=== PATIENT | female | born 1940 | race Caucasian/White ===

== ENCOUNTER 2017-01-29 10:02 | Inpatient (IN) | payer OTHER, MEDICAID ==
[~2017-01-29] VITALS: Ht 160 cm; Wt 77.3 kg
--- NOTE | ~2017-01-29 | DS ---
[place], [place] DISCHARGE SUMMARY NAME: [id number] UNIT #: [id number] ROOM: 426 DOCTOR: RODERICK ALMONTE MD BIRTHDATE: [birth year] DOS: 01/30/2017 DISCHARGE DIAGNOSES: 1. The patient with dizziness, which has resolved. 2. Benign positional vertigo. 3. Elevation of lactic acid levels normalized with hydration with normal saline. 4. Benign essential hypertension. 5. Mixed hyperlipidemia. HOSPITAL COURSE: The patient presented to [facility] Emergency Department with dizziness with some unsteadiness of the gait. The patient had a CT scan of the head performed which did not show any acute infarcts or any new injury to the brain. She did have some small vessel ischemic changes. The patient was admitted on suspicion of impending stroke and she was given aspirin and carotid arterial Dopplers were performed after admission, which showed less than 50% stenosis. The patient was treated with Antivert and she has been asymptomatic, no lightheadedness, no difficulty with ambulation. The patient also worked with physical therapy and since she was doing well. She was discharged to home today to follow up with her primary care physician in less than a week. 1. Benign essential hypertension with controlled blood pressures. The patient was continued on lisinopril and Norvasc. There were no hypotensive episodes. 2. Type 2 diabetes mellitus with normal blood sugars. Blood sugars were monitored and she was kept on no concentrated sweet diet. There is no evidence of hypoglycemia causing her dizziness and there were no episodes of severe hyperglycemia. 3. Mixed hyperlipidemia treated with simvastatin. LABORATORY DATA: Urine cultures were negative. Hemoglobin of 10.4, which dropped from 12.1 at admission. Apparently dilutional from hydration with normal saline during her stay at the hospital. Serum electrolytes were normal except for some drop in potassium to 3.2 apparently again from hydration with normal saline because her potassium levels were normal at admission. Should resolve on its own because hydration was stopped. DISCHARGE MANAGEMENT: Levemir insulin 30 units subq daily, Tradjenta 5 mg a day, potassium chloride 10 mEq daily, aspirin 325 mg a day, Protonix 40 mg a day, simvastatin 40 mg a day, metformin 500 mg b.i.d., glipizide 10 mg b.i.d., lisinopril 20 mg a day. Follow up at the office with her PCP, Dr. Sweeney in less than a week. [place], [place] DISCHARGE SUMMARY NAME: BETTY ORTA I UNIT #: [id number] ROOM: 426 DOCTOR: RODERICK ALMONTE MD BIRTHDATE: [birth year] RODERICK ALMONTE MD CM:DISCHARG 1404 1514 RODERICK ALMONTE MD 01/30/17 1514 interface
--- NOTE | ~2017-01-29 | WRIGHTHP ---
[place], [place] PATIENT HISTORY AND PHYSICAL EXAM NAME: BETTY ORTA I [facility] #: [id number] UNIT #: [id number] ROOM: 426 DOCTOR: RODERICK ALMONTE MD BIRTHDATE: [birth year] DOS: 01/29/2017 HISTORY OF PRESENT ILLNESS: The patient is a 77-year-old female with a past medical history of benign essential hypertension, type 2 diabetes mellitus, GERD, presented to the Emergency Department at [facility] with complaints of dizziness starting this morning. The patient felt unsteady. Her blood sugar was checked to be 313 with some lightheadedness, dizziness starting the day before yesterday. CT scan performed in the Emergency Department showed small vessel ischemic changes, and she was found to be somewhat dehydrated and with elevated blood pressures and sugars and recommended for admission and further management. After admission, the patient is starting to feel better. No chest pain. No fainting episodes. No other GI or urinary symptoms. Dizziness from uncertain etiology, carotid arterial Dopplers were checked and showed less than 50% stenosis. No signs of stroke, just small vessel disease on CT of the head. The patient to be treated with Antivert and to walk with physical therapy, and if she is ambulating very well, she can be discharged home tomorrow. No signs of any stroke. Mildly elevated lactic acid levels, which are improving. I will keep her on hydration with normal saline. There are no signs of sepsis or infection. The patient is looking good, has good skin color, normal speech, and she is looking well. REVIEW OF SYSTEMS: LUNGS: Without increased shortness of breath or wheezing. GASTROINTESTINAL: No nausea, vomiting, diarrhea, constipation. CARDIOVASCULAR: No chest pain, no palpitations. ALLERGIES: No known drug allergies. FAMILY HISTORY: Noncontributory. HOME MEDICATIONS: The patient takes lisinopril, hydrochlorothiazide, potassium, Tradjenta, aspirin, Protonix, simvastatin, metformin, glipizide, lisinopril at home. PHYSICAL EXAMINATION: VITAL SIGNS: Blood pressure 183/80, heart rate 87 beats per minute, breathing 20 times per minute, temperature 98 degrees Fahrenheit. GENERAL: Alert and oriented x3, in no visible distress. HEENT AND NECK: Extraocular movements are intact. Sclerae are anicteric. Oral mucosa is moist and clean. No obvious facial weakness. Neck is supple without any lymphadenopathy. No thyromegaly. No JVD. No carotid arterial bruits. LUNGS: Clear to auscultation. No wheezing. No rhonchi. CARDIOVASCULAR SYSTEM: Heart rate is regular in rate and rhythm. S1 and S2 normally audible. No significant murmur or any other abnormal cardiac sounds. ABDOMEN: Soft, nontender. No obvious organomegaly. Bowel sounds are present. No obvious herniation. EXTREMITIES: Without significant cyanosis or edema. Warm to touch. [place], [place] PATIENT HISTORY AND PHYSICAL EXAM NAME: BETTY ORTA I UNIT #: [id number] ROOM: 426 DOCTOR: RODERICK ALMONTE MD BIRTHDATE: [birth year] CENTRAL NERVOUS SYSTEM: Exam was also normal, no focal deficits. LABORATORY DATA: Lactic acid level of 2.6. Carotid arterial Dopplers showing less than 50% stenosis. CT scan of the head, no acute abnormality, just some small vessel ischemic changes. Chest x-ray without any acute abnormality. BUN and creatinine 15 and 1.2. Normal serum Electrolytes. Normal CO2. IMPRESSION AND PLAN: 1. The patient presenting with benign positional vertigo. No signs of any TIA or stroke. The patient does have some small vessel ischemic changes in her brain which are chronic. Carotid arterial Dopplers showed no critical stenosis. Also, start her on Antivert for symptomatic relief and let her work with physical therapy. If she is walking well, she can be discharged to home tomorrow morning. 2. Mildly elevated lactic acid level of uncertain significance. I will hydrate her with normal saline and recheck her lactic acid levels. 3. Type 2 diabetes mellitus. We will check her blood sugars. Keep on no concentrated sweet diet and treat accordingly. 4. Benign essential hypertension with elevated blood pressures. If her blood pressures do not normalize after she takes her lisinopril then I will add Norvasc to the treatment. 5. Mixed hyperlipidemia, treated with simvastatin. RODERICK ALMONTE MD CM:HISPHYS:PATIENT HISTORY AND PHYSICAL EXAMINATION 04 99 RODERICK ALMONTE MD 01/29/17 190 interface
[~2017-01-29 10:02] MED LIST: ASPIRIN81 M1 PO; CENTRUM SILVER1 TA2 PO; GLIPIZIDE10 MG PO; Janumet 1000 MG1 TAB PO; LEVEMIR100 U/ML SC; LISINOPRIL HCTZ1 TA1 PO; NEXIUM40 MG PO
[2017-01-29] MEDS ORDERED: LEVEMIR10 ML SC (10:08)
[2017-01-29] MEDS ORDERED: JANUMET 1000 MG1 TA1 PO (10:09)
[2017-01-29] MEDS ORDERED: PANTOPRAZOLE SO40 MG PO (10:09)
[2017-01-29 10:10] VITALS: BP 189/92
[2017-01-29 10:39] LABS: BASO % 0.7 % (0.0-1.0); EOS # 0.2 10*3/uL (0.0-0.4); EOS % 3.2 % (1.0-4.0); HEMATOCRIT 35.1 % (37.0-47.0); HEMOGLOBIN 12.1 g/dl (12.0-16.0); LYMPH # 1.5 10*3/uL (1.3-4.4); LYMPH % 24.9 % (27.0-41.0); MEAN CORPUSCULAR HGB CONC 34.5 g/dl (33.0-37.0); MEAN PLATELET VOLUME 10.5 fl (9.6-12.3); MONO # 0.5 10*3/uL (0.1-1.0); MONO % 7.9 % (3.0-9.0); NEUT # 3.7 10*3/uL (2.3-7.9); NEUT % 62.8 % (47.0-73.0); PLATELET COUNT AUTOMATED 158 10*3/uL (130-400); WHITE BLOOD COUNT 5.9 10*3/uL (4.8-10.8)
[2017-01-29 10:57] LABS: ALBUMIN 3.8 gm/dl (3.1-4.5); ALKALINE PHOSPHATASE 91 U/L (45-117); BILIRUBIN, TOTAL 0.6 mg/dl (0.2-1.0); BUN 15 mg/dl (7-24); CARBON DIOXIDE 24 mmol/L (21-32); CHLORIDE 94 mmol/L (98-107); EST GLOM FILT AFRICAN AMERICAN 53 ml/min; GLUCOSE 381 mg/dL (65-99); MAGNESIUM 1.1 mg/dL (1.5-2.1); POTASSIUM 3.5 mmol/L (3.5-5.1); SGOT/AST 30 IU/L (3-35); SGPT/ALT 49 U/L (12-78); SODIUM 133 mmol/L (136-145); TOTAL PROTEIN 7.8 gm/dL (6.4-8.2)
[2017-01-29 10:59] LABS: TROPONIN I < 0.015 ng/ml (<0.045)
[2017-01-29 11:42] LABS: BILIRUBIN NEGATIVE (NEGATIVE); BLOOD NEGATIVE (NEGATIVE); CLARITY CLEAR (CLEAR); COLOR YELLOW (YELLOW); GLUCOSE 3+ (NEGATIVE); KETONE NEGATIVE (NEGATIVE); LEUKO ESTERASE NEGATIVE (NEGATIVE); NITRITE NEGATIVE (NEGATIVE); PROTEIN NEGATIVE (NEGATIVE); SPECIFIC GRAVITY <= 1.005 (1.005-1.030); UROBILINOGEN 0.2 E.U./dl (0.2-1.0)
[2017-01-29 11:49] LABS: URINE REFLEX COMMENT YES (NO)
[2017-01-29 12:02] VITALS: BP 154/80; BP 186/88
[2017-01-29 12:35] LABS: LA>2 REFLEX 2 HR DRAW NOW
[2017-01-29 12:51] LABS: LA>2 RFLX FOLLOW UP AT 2 HRS 2.8 mmol/L (0.4-2.0)
[2017-01-29] MEDS ORDERED: POTASSIUM CHLO10 ME5 PO (13:04)
[2017-01-29] MEDS ORDERED: SIMVASTATIN40 MG PO (13:04)
[2017-01-29 13:50] VITALS: BP 172/72
[2017-01-29 14:45] LABS: LA>2 REFLEX 4 HR DRAW NOW
[2017-01-29 16:00] VITALS: BP 183/80
[2017-01-29 17:30] VITALS: BP 144/66
[2017-01-29 19:12] LABS: LA>2 REFLEX 2 HR DRAW NOW
[2017-01-29 19:29] LABS: LA>2 RFLX FOLLOW UP AT 2 HRS 2.6 mmol/L (0.4-2.0)
[2017-01-29 20:00] VITALS: BP 135/68
[2017-01-29 21:20] LABS: LA>2 REFLEX 4 HR DRAW NOW
[2017-01-30] VITALS: BP 122/68; BP 97/52
[2017-01-30 06:12] LABS: BUN 14 mg/dl (7-24); CARBON DIOXIDE 28 mmol/L (21-32); CHLORIDE 97 mmol/L (98-107); EST GLOM FILT AFRICAN AMERICAN > 60 ml/min; GLUCOSE 141 mg/dL (65-99); POTASSIUM 3.2 mmol/L (3.5-5.1); SODIUM 136 mmol/L (136-145)
[2017-01-30 06:16] LABS: BASO % 0.7 % (0.0-1.0); EOS # 0.3 10*3/uL (0.0-0.4); EOS % 5.5 % (1.0-4.0); HEMATOCRIT 31.1 % (37.0-47.0); HEMOGLOBIN 10.4 g/dl (12.0-16.0); LYMPH # 1.5 10*3/uL (1.3-4.4); MEAN CELL VOLUME 92.8 fl (81.0-99.0); MEAN CORPUSCULAR HGB CONC 33.4 g/dl (33.0-37.0); MEAN PLATELET VOLUME 10.5 fl (9.6-12.3); MONO # 0.5 10*3/uL (0.1-1.0); MONO % 8.2 % (3.0-9.0); NEUT # 3.2 10*3/uL (2.3-7.9); NEUT % 58.1 % (47.0-73.0); NUCLEATED RED BLOOD CELL 0.4 % (0.0-0.0); PLATELET COUNT AUTOMATED 150 10*3/uL (130-400); RED BLOOD COUNT 3.35 10*6/uL (4.10-5.10); RED CELL DISTRI WIDTH 13.9 % (0-14.5); WHITE BLOOD COUNT 5.5 10*3/uL (4.8-10.8)
[2017-01-30 08:00] VITALS: BP 140/75
== END 2017-01-30 11:52 | disposition home or self-care (01) | DRG 149 ==
LOC: ED 10:02 → 4E 12:35 → EDHOLD 12:35 → 4E 12:57
PROVIDERS: Internal Medicine; Nurse Practitioner Family
DX: H81.10 Benign paroxysmal vertigo, unspecified ear (principal); E11.65 Type 2 diabetes mellitus with hyperglycemia; E86.0 Dehydration; I10 Essential (primary) hypertension; K21.9 Gastro-esophageal reflux disease without esophagitis; E78.2 Mixed hyperlipidemia; Z79.899 Other long term (current) drug therapy; Z79.82 Long term (current) use of aspirin; Z79.84 Long term (current) use of oral hypoglycemic drugs

== ENCOUNTER → 2017-03-19 | Outpatient (CLI) | payer OTHER, MEDICAID ==
[~2017-03-19] MED LIST changes: +JANUMET 1000 MG1 TA1 PO; +LEVEMIR10 ML SC; +PANTOPRAZOLE SO40 MG PO; +POTASSIUM CHLO10 ME5 PO; +SIMVASTATIN40 MG PO
== END | disposition home or self-care (01) ==
LOC: RAD 09:02
DX: R05 Cough (principal); R06.02 Shortness of breath; R09.89 Other specified symptoms and signs involving the circulatory and respiratory systems; R06.2 Wheezing

== ENCOUNTER 2019-03-28 17:09 | Inpatient (IN) | payer OTHER, MEDICAID ==
[~2019-03-28] VITALS: Ht 162.5 cm; Wt 71.9 kg
--- NOTE | ~2019-03-28 | PR ---
[place], [place] PROGRESS NOTE NAME: BETTY ORTA I UNIT #: [id number] ROOM: 510 DOCTOR: DEION NAVA MD BIRTHDATE: [birth year] DOS: 04/04/2019 SUBJECTIVE: The patient is feeling good and is not having any complaints. She is sitting up in her bed. OBJECTIVE: VITAL SIGNS: Blood pressure is 136/63, pulse of 90, respirations 20, temperature 98.2. LUNGS: Diminished breath sounds. No wheezes, rales or rhonchi heard. HEART: Regular. ABDOMEN: Soft. EXTREMITIES: Without any edema. ASSESSMENT AND PLAN: 1. Adult failure to thrive, awaiting discharge to home with visiting nurses and PT, OT. 2. Acute kidney failure with acute tubular necrosis. Kidney functions have improved. Multiple medications have been discontinued, most likely because of volume depletion following a colonoscopy. 3. Hyponatremia, hypokalemia, as again corrected. 4. Type 2 diabetes mellitus. Blood sugars controlled on the current dose of medicines. Plan is to discharge today. DEION NAVA MD CM:PNTRANS [id number] DEION NAVA MD 04/05/19 0143 interface
--- NOTE | ~2019-03-28 | PR ---
[place], [place] PROGRESS NOTE NAME: BETTY ORTA I UNIT #: [id number] ROOM: 510 DOCTOR: RODERICK ALMONTE MD BIRTHDATE: [birth year] DOS: 04/03/2019 SUBJECTIVE: The patient continues to improve. She is ambulating with the help of physical therapy and may be able to be discharged to home tomorrow. She was waiting for transfer to custodial facility, which has not been arranged by insurance so far. OBJECTIVE: GENERAL APPEARANCE: The patient is alert and oriented x 3, in no visible distress. Generalized weakness. VITAL SIGNS: Blood pressure 145/58, heart rate 83 beats per minute, breathing 20 times per minute, temperature 99 degrees Fahrenheit. HEENT AND NECK: Exam within normal limits. CARDIOVASCULAR SYSTEM: Heart rate is regular in rate and rhythm. S1 and S2 normally audible. LUNGS: Clear to auscultation. ABDOMEN: Soft, nontender. No obvious organomegaly. Bowel sounds are present. EXTREMITIES: Without significant cyanosis or edema. IMPRESSION: 1. Advanced adult failure to thrive. Continues to be on physical therapy. Hopefully, to be discharged to home tomorrow with family. 2. Acute kidney failure and acute tubular necrosis. Creatinine improved to 1.24. Nephrology is following. Stage 3A chronic kidney disease. 3. Hypokalemia, resolved and hyponatremia, resolved with replacement. Hydrochlorothiazide was stopped permanently because it was causing electrolyte imbalance. 4. Mild protein calorie-malnutrition with albumin level of 3. The patient is working with Dietary. 5. Ambulatory dysfunction, treated with physical therapy. 6. Urinary tract infection, treated with ceftriaxone. 7. Mixed hyperlipidemia, treated with simvastatin. 8. Benign essential hypertension, treated and controlled. [place], [place] PROGRESS NOTE NAME: BETTY ORTA I UNIT #: [id number] ROOM: 510 DOCTOR: RODERICK ALMONTE MD BIRTHDATE: [birth year] RODERICK ALMONTE MD CM:PNTRANS 1210 1646 RODERICK ALMONTE MD 04/03/19 1647 interface
--- NOTE | ~2019-03-28 | PR ---
[place], [place] PROGRESS NOTE NAME: BETTY ORTA I UNIT #: [id number] ROOM: 510 DOCTOR: RODERICK ALMONTE MD BIRTHDATE: [birth year] DOS: SUBJECTIVE: The patient with ambulatory dysfunction and difficulty in walking. OBJECTIVE: VITAL SIGNS: Blood pressure 126/66, heart rate of 84 beats per minute, breathing 18 times per minute, temperature 98.1 degrees Fahrenheit. GENERAL APPEARANCE: The patient is alert and oriented x 3, in no visible distress, except for generalized weakness. HEENT AND NECK: Exam within normal limits. CARDIOVASCULAR SYSTEM: Heart rate is regular in rate and rhythm. S1 and S2 normally audible. LUNGS: Clear to auscultation. ABDOMEN: Soft, nontender. No obvious organomegaly. Bowel sounds are present. EXTREMITIES: Without significant cyanosis or edema. IMPRESSION AND PLAN: 1. Ambulatory dysfunction. The patient walks with help of a walker and working with Physical Therapy. 2. Chronic kidney disease stage 3 and diabetic nephropathy with acute tubular necrosis, acute over chronic kidney failure, is being treated with hydration, hydrochlorothiazide stopped. Dr. Biswas, airline lounge receptionist is following. The patient's BUN and creatinine have improved to 17 and 1.28. 3. Mild protein-calorie malnutrition with albumin level of 3. The patient is working with Dietary. 4. Benign essential hypertension, treated and controlled. 5. Hypomagnesemia, replaced, apparently from the patient taking hydrochlorothiazide. 6. Urinary tract infection, being treated with ceftriaxone. Urine cultures apparently contaminated, did not give me much information. 7. Mixed hyperlipidemia, treated with simvastatin. 8. Benign essential hypertension, treated and controlled. Blood pressures are staying normal. 9. Recent rhabdomyolysis from patient being on floor at home for many hours, treated with hydration with normal saline. [place], [place] PROGRESS NOTE NAME: BETTY ORTA I UNIT #: [id number] ROOM: 510 DOCTOR: RODERICK ALMONTE MD BIRTHDATE: [birth year] RODERICK ALMONTE MD CM:PNTRANS 1053 21 RODERICK ALMONTE MD 03/31/192022 interface
--- NOTE | ~2019-03-28 | PR ---
[place], [place] PROGRESS NOTE NAME: BETTY ORTA I UNIT #: [id number] ROOM: 510 DOCTOR: RODERICK ALMONTE MD BIRTHDATE: [birth year] DOS: 04/02/2019 SUBJECTIVE: 1. The patient ambulating with the help of physical therapy and waiting for [facility] facility. 2. Acute kidney failure, acute tubular necrosis. Creatinine improved to 1.24 and GFR to 51, stage 3A chronic kidney disease. 3. Hypokalemia and hyponatremia and hypomagnesemia have resolved after hydrochlorothiazide was stopped and electrolytes were replaced. 4. Mild protein-calorie malnutrition, albumin level of 3. The patient working with dietary. 5. Ambulatory dysfunction. The patient working with physical therapy. 6. UTI, treated with ceftriaxone. Urine cultures were contaminated. 7. Mixed hyperlipidemia, treated with simvastatin. 8. Benign essential hypertension, treated and controlled. RODERICK ALMONTE MD CM:PNTRANS 1035 [id number] RODERICK ALMONTE MD 04/03/19 0331 interface
--- NOTE | ~2019-03-28 | PR ---
[place], [place] PROGRESS NOTE NAME: BETTY ORTA I UNIT #: [id number] ROOM: 510 DOCTOR: RODERICK ALMONTE MD BIRTHDATE: [birth year] DOS: 04/01/2019 SUBJECTIVE: The patient continues to feel somewhat better. She is still quite weak and walking with the help of a walker with Physical Therapy. OBJECTIVE: VITAL SIGNS: Blood pressure 127/73, heart rate of 90 beats per minute, 98.3 degrees Fahrenheit temperature, breathing 18 times per minute. IMPRESSION: 1. The patient with acute tubular necrosis with chronic stage 3A chronic kidney disease. BUN and creatinine is improving with hydration with normal saline and Dr. Biswas, the skiver welt end is following her. 2. Benign essential hypertension, not treated and controlled. Blood pressures are staying normal. 3. Hypokalemia, replaced with potassium supplements. 4. Hyponatremia from hydrochlorothiazide, which has been stopped, improving with normal saline infusion. 5. Rhabdomyolysis, elevated creatinine of 1.32, normalized with hydration with normal saline. 6. Mild protein-calorie malnutrition with albumin level of 3. The patient working with Dietary. 7. Ambulatory dysfunction. The patient walks with a walker and working with Physical Therapy. 8. Urinary tract infection, treated with ceftriaxone. Urine culture is contaminated and did not help much. 9. Mixed hyperlipidemia, treated with simvastatin. RODERICK ALMONTE MD CM:PNTRANS [id number] RODERICK ALMONTE MD 05/05/19 0836 interface
--- NOTE | ~2019-03-28 | DS ---
[place], [place] DISCHARGE SUMMARY NAME: BETTY ORTA I UNIT #: [id number] ROOM: 510 DOCTOR: DEION NAVA MD BIRTHDATE: [birth year] DOS: 04/04/2019 DIAGNOSES: 1. Acute kidney failure. 2. Acute tubular necrosis. 3. Hyponatremia, hypokalemia, hypochloremia from diuretics. 4. Benign hypertension. 5. Type 2 diabetes mellitus. 6. Benign hypertension. 7. Dizziness with chronic benign positional vertigo. HOSPITAL COURSE: The patient is 79 years old. She recently underwent a colonoscopy and after that became increasingly tired with poor appetite, was found to be in acute kidney failure and was admitted. After admission, Dr. Biswas was consulted. Her medications were readjusted. IV fluids were ordered. Hypomagnesemia was noted. She will correct it. The patient was also found to have some rhabdo, which is also improved. Blood sugars are controlled after multiple medicines were discontinued. The patient is overall stable. This morning, the lab shows WBC count of 5.4, hemoglobin 9.0, comprehensive glucose 157, BUN 29, creatinine 1.48, sodium 140, potassium 3.8, phosphorus 1.4. The patient has been treated with IV fluids with improvement in the kidney functions. PT/OT was consulted. The patient is able to go home with PT/OT, so plan is to discharge her today. Hypomagnesemia, hypophosphatemia has been noticed. Supplements have been ordered. DISCHARGE MEDICATIONS: Neutra-Phos 1 packet t.i.d. for 7 days, mag oxide 400 mg 3 times a day for a month, glipizide 10 b.i.d., Levemir 30 units daily, simvastatin 40 daily, gabapentin 100 t.i.d., metoprolol 25 daily, Tylenol 500 q.6 p.r.n., Ozempic 2 mg q. weekly. Janumet, lisinopril, hydrochlorothiazide and propranolol were discontinued. [place], [place] DISCHARGE SUMMARY NAME: BETTY ORTA I UNIT #: [id number] ROOM: 510 DOCTOR: DEION NAVA MD BIRTHDATE: [birth year] DEION NAVA MD CM:INEZ 6 5 DEION NAVA MD 04/04/19 09 interface
--- NOTE | ~2019-03-28 | EKG ---
[place], [place] ELECTROCARDIOGRAM REPORT NAME: BETTY ORTA I UNIT #: [id number] ROOM: 510 DOCTOR: ISABEL DRAFT REPORT BIRTHDATE: [birth year] [facility] Test Date: 2019-03-28 Test Time: 19:09:15 Pat Name: BETTY ORTA Department: Room: 510 Gender: F Dinkey Locomotive Operator: EKG.WV : 1940 Requested By: MIYA NIÑO Order Number: [id number] Reading MD: Ebony Rodriguez Measurements Intervals Avery Rate: 81 P: 60 NM: 147 QRS: -4 QRSD: 100 T: 12 QT: 404 QTc: 469 Interpretive Statements Sinus rhythm RSR' in V1 or V2, probably normal variant Electronically Signed On 04-01-2019 13:05:37 PDT by Ebony Rodriguez CM:EKGRPT:ELECTROCARDIOGRAM REPORT 08 1305 MIYA NIÑO EPIPHJAMES DRAFT REPORT MIYA NIÑO
--- NOTE | ~2019-03-28 | PR ---
[place], [place] PROGRESS NOTE NAME: BETTY ORTA I UNIT #: [id number] ROOM: 510 DOCTOR: RODERICK ALMONTE MD BIRTHDATE: [birth year] DOS: 03/30/2019 SUBJECTIVE: The patient is feeling less shaky today and walking with help with a walker. OBJECTIVE: GENERAL APPEARANCE: The patient is alert and oriented x 3, in no visible distress. Generalized weakness. VITAL SIGNS: Blood pressure 134/91, heart rate of 98 beats per minute, breathing 18 times per minute, temperature 98.5 degrees Fahrenheit. HEENT AND NECK: Exam within normal limits. CARDIOVASCULAR SYSTEM: Heart rate is regular in rate and rhythm. S1 and S2 normally audible. LUNGS: Clear to auscultation. ABDOMEN: Soft, nontender. No obvious organomegaly. Bowel sounds are present. EXTREMITIES: Without significant cyanosis or edema. IMPRESSION AND PLAN: 1. Acute over chronic kidney disease stage 3 and diabetic nephropathy from acute tubular necrosis. The patient was taken off hydrochlorothiazide and is being gently hydrated by mobile designer, Dr. Biswas. 3. Benign essential hypertension, treated and controlled. 4. Hypomagnesemia, replace. 5. Urinary tract infection is being treated with ceftriaxone. 6. Type 2 diabetes mellitus. The patient's metformin was stopped. Blood sugars are reasonably controlled. 7. Recent rhabdomyolysis from patient being on the floor at home for many hours, treated with hydration with normal saline. 8. [id number] protein-calorie malnutrition related to her age and health, being followed by Dietary. 9. Mixed hyperlipidemia is being treated with simvastatin. RODERICK ALMONTE MD CM:PNTRANS 1649 33 RODERICK ALMONTE MD 03/30/191834 interface
--- NOTE | ~2019-03-28 | WRIGHTHP ---
[place], [place] PATIENT HISTORY AND PHYSICAL EX[id number] #: [id number] ROOM: 510 DOCTOR: RODERICK ALMONTE MD BIRTHDATE: [birth year] DOS: 03/28/2019 HISTORY OF PRESENT ILLNESS: The patient is an 79-year-old female with a past medical history of: 1. Dizziness and benign positional vertigo. 2. Benign essential hypertension. 3. Mixed hyperlipidemia. 4. Type 2 diabetes mellitus. 5. Vitamin D deficiency. Past surgical history of hysterectomy, cholecystectomy. The patient is not doing very well at home, getting forgetful, feeling fatigued and tired for a few days. The patient was found to be in acute kidney failure and recommended for admission and further management. The patient had some dizziness. HOME MEDICATIONS: Insulin, simvastatin, gabapentin, metoprolol, lisinopril, propranolol, glipizide. FAMILY HISTORY: Noncontributory. OBJECTIVE: VITAL SIGNS: Blood pressure 112/52, heart rate 82 beats per minute, breathing 20 times per minute, temperature 98 degrees Fahrenheit. GENERAL APPEARANCE: The patient is alert and oriented x 3, in no visible distress. Generalized weakness. HEENT AND NECK: Extraocular movements are intact. Sclerae are anicteric. Oral mucosa is moist and clean. No obvious facial weakness. Neck is supple without any lymphadenopathy. No thyromegaly. No JVD. No carotid arterial bruits. LUNGS: Clear to auscultation. No wheezing. No rhonchi. CARDIOVASCULAR SYSTEM: Heart rate is regular in rate and rhythm. S1 and S2 normally audible. No significant murmur or any other abnormal cardiac sounds. ABDOMEN: Soft, nontender. No obvious organomegaly. Bowel sounds are present. No obvious herniation. EXTREMITIES: Without significant cyanosis or edema. Warm to touch. CENTRAL NERVOUS SYSTEM: Alert and oriented x 3. Cranial nerves II-XII are intact. Speech is normal. The patient is able to move all extremities. Normal muscle strength. Deep tendon reflexes are equal on both sides. Plantars were downgoing. LABORATORY DATA: BUN and creatinine 49 and 3.09, improving with hydration. Severe hypokalemia with potassium level of 2.8. IMPRESSION: 1. Acute over chronic kidney disease, stage 3 and diabetic nephropathy, acute tubular necrosis related to treatment with hydrochlorothiazide and also recent poor appetite. The patient started on hydration by Dr. Biswas, narcotics and vice detective and lisinopril/hydrochlorothiazide were stopped. 2. Benign essential hypertension. Blood pressures to be monitored and treated [place], [place] PATIENT HISTORY AND PHYSICAL EXAM NAME: BETTY ORTA I UNIT #: [id number] ROOM: [facility] DOCTOR: RODERICK ALMONTE MD BIRTHDATE: [birth year] accordingly, lisinopril/hydrochlorothiazide stopped 3. Hypokalemia from use of hydrochlorothiazide. The patient given extra potassium supplements. 4. Hyponatremia from use of hydrochlorothiazide and dehydration, improving with IV fluids. 5. Hypomagnesemia from hydrochlorothiazide, replaced with extra magnesium. 6. Suspected urinary tract infection. The patient on ceftriaxone. 7. Type 2 diabetes mellitus. The patient on metformin, which was stopped because of her kidney failure. Blood sugars to be monitored and treated. 8. Rhabdomyolysis for being on the floor for many hours at home after she fell down. The patient is being treated with normal saline hydration. 9. Advance adult failure to thrive. The patient may require placement and I will consult nursing home social worker. 10. Mixed hyperlipidemia, treated with simvastatin. RODERICK ALMONTE MD CM:HISPHYS:PATIENT HISTORY AND PHYSICAL EXAMINATION 1728 08 RODERICK ALMONTE MD 05/05/19 0834 interface
[2019-03-28 17:16] VITALS: BP 102/48
[2019-03-28 17:53] LABS: BASO % 0.4 % (0.0-1.0); EOS # 0.6 10*3/uL (0.0-0.4); EOS % 6.7 % (1.0-4.0); HEMATOCRIT 31.6 % (37.0-47.0); LYMPH # 1.9 10*3/uL (1.3-4.4); LYMPH % 20.6 % (27.0-41.0); MEAN CORPUSCULAR HGB 32.7 pg (27.0-31.0); MEAN CORPUSCULAR HGB CONC 34.8 g/dl (33.0-37.0); MEAN PLATELET VOLUME 10.1 fl (9.6-12.3); MONO # 0.9 10*3/uL (0.1-1.0); MONO % 9.6 % (3.0-9.0); NEUT # 5.8 10*3/uL (2.3-7.9); NEUT % 62.4 % (47.0-73.0); PLATELET COUNT AUTOMATED 172 10*3/uL (130-400); RED BLOOD COUNT 3.36 10*6/uL (4.10-5.10); RED CELL DISTRI WIDTH 14.3 % (0-14.5); WHITE BLOOD COUNT 9.4 10*3/uL (4.8-10.8)
[2019-03-28 18:08] LABS: ACT PARTIAL THROMBO TIME 25.2 SECONDS (20.0-32.1); INTERNATIONAL NORM RATIO 1.1 (2.0-3.5)
[2019-03-28 18:15] LABS: ALBUMIN 3.5 gm/dl (3.1-4.5); CREATININE 3.09 mg/dL (0.55-1.02); POTASSIUM 2.8 mmol/L (3.5-5.1); TOTAL PROTEIN 7.3 gm/dL (6.4-8.2)
[2019-03-28 18:17] LABS: TROPONIN I 0.038 ng/ml (<0.045)
[2019-03-28 19:32] VITALS: BP 102/50
[2019-03-28 21:53] VITALS: BP 108/46
[2019-03-28 23:31] VITALS: BP 96/47
--- NOTE | 2019-03-28 23:58 | NUR ---
A 79, admitted to , under the services of Dr. GAGE SANDHU,RODERICK Miller with a diagnosis of DIZZINESS, ACUTE RENAL FAILURE, DEHYDRATION. Chief complaint is FALL. Patient arrived via ambulatory from ER. Monitor applied. Initial assessment completed. Vital signs taken and recorded. DR. GAGE SANDHU,RODERICK Miller notified of admission to the unit. Orders received. See assessment for past medical history, medications and allergies. Patient and/or family oriented to unit. [facility] visitation policy reviewed. Clothing/patient valuable form completed. MARK GUZMAN
[2019-03-29] VITALS: BP 102/52
[2019-03-29] MEDS ORDERED: NEURONTIN100 MG PO (00:25)
[2019-03-29] MEDS ORDERED: TOPROL XL25 MG PO (00:25)
[2019-03-29] MEDS ORDERED: ZESTORETIC 20-1 EAC1 PO (00:25)
[2019-03-29] MEDS ORDERED: CALCIUM + D3 E1 EACH PO (00:26)
[2019-03-29] MEDS ORDERED: TYLENOL EXTRA500 MG PO (00:26)
[2019-03-29] MEDS ORDERED: OZEMPIC1 MG/0.75 SQ ×2 (00:27→00:28)
[2019-03-29] MEDS ORDERED: PROPRANOLOL HCL10 MG PO (00:27)
--- NOTE | 2019-03-29 00:41 | NUR ---
A 79, admitted to 5E, under the services of Dr. GAGE SANDHU,RODERICK Miller with a diagnosis of DIZZINESS, ACUTE RENAL FAILURE, DEHYDRATION. Chief complaint is FALL. Patient arrived via ambulatory from ER. Monitor applied. Initial assessment completed. Vital signs taken and recorded. DR. GAGE SANDHU,RODERICK Miller notified of admission to the unit. Orders received. See assessment for past medical history, medications and allergies. Patient and/or family oriented to unit. [facility] visitation policy reviewed. Clothing/patient valuable form completed. MARK GUZMAN
--- NOTE | 2019-03-29 00:55 | NUR ---
MED REC UP TO DATE, DR ALMONTE NOTIFIED. NEW ORDERS RECEIVED FOR PATIENT.
[2019-03-29 01:04] LABS: BILIRUBIN 1+ (NEGATIVE); BLOOD NEGATIVE (NEGATIVE); CLARITY SL CLOUDY (CLEAR); COLOR YELLOW (YELLOW); GLUCOSE NEGATIVE (NEGATIVE); KETONE TRACE (NEGATIVE); LEUKO ESTERASE 3+ (NEGATIVE); NITRITE NEGATIVE (NEGATIVE); PH 5.5 (5.0-9.0); SPECIFIC GRAVITY 1.015 (1.005-1.030); UROBILINOGEN 0.2 E.U./dl (0.2-1.0)
[2019-03-29 01:12] LABS: BACTERIA TRACE; EPITHELIAL CELLS 30-35; WBC 41-50 wbc/hpf (0-5)
--- NOTE | 2019-03-29 05:57 | NUR ---
GLUCOSE MEDS HELD DUE TO BLOOD GLUCOSE OF 58.
--- NOTE | 2019-03-29 05:58 | NUR ---
D50W GIVEN BY NURSE KARTHIK DUE TO BLOOD GLUCOSE OF 58.
[2019-03-29 07:09] VITALS: BP 110/56
[2019-03-29 12:00] VITALS: BP 104/46; BP 114/56
[2019-03-29 12:19] LABS: BASO % 0.5 % (0.0-1.0); EOS # 0.5 10*3/uL (0.0-0.4); EOS % 7.6 % (1.0-4.0); HEMATOCRIT 26.9 % (37.0-47.0); HEMOGLOBIN 9.5 g/dl (12.0-16.0); LYMPH # 1.4 10*3/uL (1.3-4.4); LYMPH % 22.1 % (27.0-41.0); MEAN CELL VOLUME 94.4 fl (81.0-99.0); MEAN CORPUSCULAR HGB 33.3 pg (27.0-31.0); MEAN CORPUSCULAR HGB CONC 35.3 g/dl (33.0-37.0); MEAN PLATELET VOLUME 10.1 fl (9.6-12.3); MONO # 0.6 10*3/uL (0.1-1.0); MONO % 9.7 % (3.0-9.0); NEUT # 3.7 10*3/uL (2.3-7.9); NEUT % 59.8 % (47.0-73.0); PLATELET COUNT AUTOMATED 128 10*3/uL (130-400); RED BLOOD COUNT 2.85 10*6/uL (4.10-5.10); RED CELL DISTRI WIDTH 14.3 % (0-14.5); WHITE BLOOD COUNT 6.2 10*3/uL (4.8-10.8)
[2019-03-29 12:35] LABS: ALBUMIN 2.8 gm/dl (3.1-4.5); CREATININE 2.17 mg/dL (0.55-1.02); POTASSIUM 2.9 mmol/L (3.5-5.1); TOTAL PROTEIN 6.3 gm/dL (6.4-8.2)
[2019-03-29 16:00] VITALS: BP 112/52
[2019-03-29 20:00] VITALS: BP 106/52
[2019-03-30] VITALS: BP 122/55
[2019-03-30 06:25] LABS: BASO % 0.4 % (0.0-1.0); EOS # 0.4 10*3/uL (0.0-0.4); EOS % 6.5 % (1.0-4.0); HEMATOCRIT 26.4 % (37.0-47.0); LYMPH # 1.2 10*3/uL (1.3-4.4); LYMPH % 21.9 % (27.0-41.0); MEAN CELL VOLUME 95.7 fl (81.0-99.0); MEAN CORPUSCULAR HGB 32.6 pg (27.0-31.0); MEAN CORPUSCULAR HGB CONC 34.1 g/dl (33.0-37.0); MEAN PLATELET VOLUME 9.9 fl (9.6-12.3); MONO # 0.7 10*3/uL (0.1-1.0); MONO % 12.8 % (3.0-9.0); NEUT # 3.1 10*3/uL (2.3-7.9); PLATELET COUNT AUTOMATED 120 10*3/uL (130-400); RED BLOOD COUNT 2.76 10*6/uL (4.10-5.10); RED CELL DISTRI WIDTH 14.6 % (0-14.5); WHITE BLOOD COUNT 5.4 10*3/uL (4.8-10.8)
[2019-03-30 07:07] LABS: ALBUMIN 2.8 gm/dl (3.1-4.5); CREATININE 1.48 mg/dL (0.55-1.02); PHOSPHOROUS 1.5 mg/dL (2.5-4.9); POTASSIUM 3.8 mmol/L (3.5-5.1)
[2019-03-30 07:09] LABS: TOTAL PROTEIN 5.8 gm/dL (6.4-8.2)
[2019-03-30 08:00] VITALS: BP 120/72
[2019-03-30 12:00] VITALS: BP 134/64
[2019-03-30 16:00] VITALS: BP 134/91
[2019-03-30 20:00] VITALS: BP 128/56
[2019-03-31] VITALS: BP 124/69
--- NOTE | 2019-03-31 05:03 | NUR ---
24 HR chart check completed.
[2019-03-31 06:59] LABS: CREATININE 1.28 mg/dL (0.55-1.02); PHOSPHOROUS 4.1 mg/dL (2.5-4.9); POTASSIUM 3.8 mmol/L (3.5-5.1); TOTAL PROTEIN 6.6 gm/dL (6.4-8.2)
[2019-03-31 07:14] LABS: BASO % 0.6 % (0.0-1.0); EOS # 0.4 10*3/uL (0.0-0.4); EOS % 7.7 % (1.0-4.0); HEMATOCRIT 29.6 % (37.0-47.0); HEMOGLOBIN 9.8 g/dl (12.0-16.0); LYMPH # 1.2 10*3/uL (1.3-4.4); LYMPH % 23.6 % (27.0-41.0); MEAN CELL VOLUME 98.7 fl (81.0-99.0); MEAN CORPUSCULAR HGB 32.7 pg (27.0-31.0); MEAN CORPUSCULAR HGB CONC 33.1 g/dl (33.0-37.0); MONO # 0.5 10*3/uL (0.1-1.0); MONO % 10.7 % (3.0-9.0); NEUT # 2.8 10*3/uL (2.3-7.9); PLATELET COUNT AUTOMATED 142 10*3/uL (130-400)
[2019-03-31 08:00] VITALS: BP 126/66
--- NOTE | 2019-03-31 10:00 | NUR ---
Funeral Limousine Driver in to talk to patient. Patient states lives at home alone with her sons checking in on her. There are 6 steps in the home. Physician: Dr. Alcira Sweeney [facility]: has had [facility] in the past and would like their services upon discharge Patient's level of ADLs: MINIMAL ASSIST Patient has working utilities: yes DME: cane, rollator Follow-up physician's appointment after d/c: she prefers to make her own follow up appt after discharge Does patient want to access PORTAL?: no Discharge plan discussed with patient and son who is at the bedside. She lives at home with her 2 sons checking in on her. She needs minimal assistance with her ADLs and ambulates with a cane. Son just ordered a rollator. Discussed short term SNF and she refuses. Discussed home health care services and she is agreeable. When provided with a list of agencies she chose [facility] as she has had them in the past. When medically stable she will be discharged to home with [facility]. The son is working to switch his work schedule around so he can be home more with his mother. ASHTYN PATEL
--- NOTE | 2019-03-31 10:05 | NUR ---
BETTY ORTA I [id number] Please refer to the physician's history and physical for past medical history, comorbid conditions, and allergies. Diagnosis: DIZZINESS AC RENAL FAILURE DEHYDRATION Jeff Score: 17,AT RISK WOUND DESCRIPTIONS: Wound Number: 1 Location of the wound: Left buttocks Type of wound: stage 2 Thickness: Partial Size: 0.4cm x 0.3cm x 0.1cm Tunneling: none Undermining: none Sinus Tract: none Presence of Exudate: Serous Amount: Light Color: Red Odor: None Periwound Skin Appearance: Normal Wound edges: approximated Pain (associated with wound): none at time of assessment How does patient state this happened? pt stated she believes this is from her sitting all the time she stated she will take care of this area at home when she is discharged. Surface the patient is resting on: Isoflex SKIN PREVENTION RECOMMENDATION: 1. Pressure redistribution support surface as appropriate 2. Elevate heels 3. Remove boots/TEDS every shift and reapply 4. Head of bed 30 degrees as tolerated 5. Assess nutrition and hydration 6. Manage moisture 7. Avoid the use of containment devices while in bed 8. Use absorptive products on surfaces limit layers of linens on bed 9. Turn and reposition every 1-2 hours in bed and every 1 hour in chair as tolerated 10. Weight shifts every 15 minutes while up in chair 11. Offloading with pillows or device to keep heels elevated off bed 12. Monitor skin at least every shift 13. Inspect under medical devices twice a day WOUND TREATMENT RECOMMENDATIONS: Wheelchair cushion when oob. Stage 2 guidelines: Cleanse left buttocks with nss and apply sureprep around the wound therahoney to wound bed and cover with optifoam gentle.
[2019-03-31 12:00] VITALS: BP 130/63
[2019-03-31 16:00] VITALS: BP 114/57
[2019-03-31 20:00] VITALS: BP 124/67; BP 126/68
[2019-04-01] VITALS: BP 121/65
--- NOTE | 2019-04-01 04:42 | NUR ---
24 HR chart check completed.
[2019-04-01 06:33] LABS: BASO % 0.5 % (0.0-1.0); EOS # 0.5 10*3/uL (0.0-0.4); EOS % 8.1 % (1.0-4.0); HEMATOCRIT 29.2 % (37.0-47.0); HEMOGLOBIN 9.4 g/dl (12.0-16.0); LYMPH # 1.4 10*3/uL (1.3-4.4); LYMPH % 21.4 % (27.0-41.0); MEAN CELL VOLUME 99.7 fl (81.0-99.0); MEAN CORPUSCULAR HGB 32.1 pg (27.0-31.0); MEAN CORPUSCULAR HGB CONC 32.2 g/dl (33.0-37.0); MONO # 0.6 10*3/uL (0.1-1.0); MONO % 9.5 % (3.0-9.0); NEUT # 3.9 10*3/uL (2.3-7.9); PLATELET COUNT AUTOMATED 132 10*3/uL (130-400); RED BLOOD COUNT 2.93 10*6/uL (4.10-5.10); RED CELL DISTRI WIDTH 14.9 % (0-14.5); WHITE BLOOD COUNT 6.6 10*3/uL (4.8-10.8)
[2019-04-01 06:39] LABS: ALBUMIN 3.1 gm/dl (3.1-4.5); POTASSIUM 3.3 mmol/L (3.5-5.1)
[2019-04-01 06:41] LABS: CREATININE 1.32 mg/dL (0.55-1.02); TOTAL PROTEIN 6.6 gm/dL (6.4-8.2)
--- NOTE | 2019-04-01 06:53 | NUR ---
DR NAVA CALLED WITH [facility] 0.8, NEW ORDERS RECEIVED- SEE EMAR.
[2019-04-01 08:00] VITALS: BP 131/67; BP 132/82
--- NOTE | 2019-04-01 09:00 | NUR ---
C T Tech in to see patient. No new needs or request at this time. When medically stable she will be discharged to home with [facility] services.
[2019-04-01 10:09] LABS: CREATININE,URINE 76.4 mg/dL (Not Estab.); MICRO ALBUMIN/CRE RATIO 31.2 (0.0-30.0)
[2019-04-01 12:00] VITALS: BP 127/73
[2019-04-01 16:00] VITALS: BP 142/74
--- NOTE | 2019-04-01 16:00 | NUR ---
ASSESSMENT COMPLETE, WOUND ON BUTTOCKS NOT ASSESSED AT THIS TIME, PT HAS COMPANY IN ROOM, PT STATES DRESSING WAS CHANGED TODAY AND CAN BE LOOKED AT WHEN SHE HAS "DIARRHEA" AGAIN
[2019-04-01 20:00] VITALS: BP 156/72
[2019-04-02] VITALS: BP 143/58
--- NOTE | 2019-04-02 | NUR ---
PT ASSISTED UP TO BR, PT AMBULATING WELL WITH ASSIST OF WALKER. A&OX3. PT THEN ASSISTED BACK TO BED. TOLERATED WELL.
[2019-04-02 08:00] VITALS: BP 136/78
--- NOTE | 2019-04-02 10:00 | NUR ---
Robot Technician in to see patient. No new needs or request at this time. When medically stable she will be discharged to home with [facility] services.
[2019-04-02 10:17] LABS: CREATININE 1.24 mg/dL (0.55-1.02)
--- NOTE | 2019-04-02 11:59 | NUR ---
Faxed home health order to [facility]
[2019-04-02 12:00] VITALS: BP 133/78
--- NOTE | 2019-04-02 14:40 | NUR ---
PHYSICAL THERAPY Patient evaluated on 5, full evaluation to follow. Continue with PT as per plan of care with fall, ALARM and acute debility precautions. Recommedn SNF, refuses. Home with family (A) , as prior and home health RN, PT and aides prn PAtient is moderate complexity via chart review, tests and evaluation: 08321. Thank you for this referral. Raquel Boss,PT
[2019-04-02 16:00] VITALS: BP 130/56
[2019-04-02 20:00] VITALS: BP 117/90
[2019-04-03] VITALS: BP 101/47
--- NOTE | 2019-04-03 02:00 | NUR ---
PATIENT ASLEEP, EYES CLOSED. NO DISTRESS NOTED. CALL LIGHT WITHIN REACH
--- NOTE | 2019-04-03 04:00 | NUR ---
RE-ASSESSED TEMP. TEMP AT THIS TIME IS 99.4F. PATIENT VOICED NO COMPLAINTS
--- NOTE | 2019-04-03 09:00 | NUR ---
Special Police Officer in to see patient. Discussed short term SNF and she is agreeable. When provided with a list of facilities she chose [facility]. Dr. Sweeney states she may go home tomorrow with home health care services. Discharge plan undecided at this time. corporate event planner notified.
--- NOTE | 2019-04-03 11:44 | NUR ---
Occupational Therapy evaluation completed on the 5th floor with full eval to follow. Precautions: fall risk, alarm, confusion at times, decreased safety awareness. low complexity level. Recommend SNF. Work on standing and sitting balance, safety, functional transfers. Thank you for this referral, Arianna Hong OTR/L
[2019-04-03 12:00] VITALS: BP 145/58
--- NOTE | 2019-04-03 14:02 | NUR ---
Informed Keisha at [facility] of possible discharge to home tomorrow.
--- NOTE | 2019-04-03 14:10 | NUR ---
PHYSICAL THERAPY Patient seen this pm 1;1 for therapy visit and was sitting up in bedside chair with a family visitor present upon therapist arrival. Patient was very pleasant this afternoon, voicing no c/o's pain, however did state some increased stiffness in B LE joints. Patient performed several sit to stand transfers from low chair surface, Min A, demonstrating slow rise, followed by gait training ex, CGA, 40'x 2, demonstrating slow guero, decreased stride and unsteady during 180 turns. Patient returned to bedside chair with increased fatigue and remained with call light, tray table, telephone and body alarm for safety. Will continue per POC as tolerated, total treatment time 16 minutes. Henrik Pearce, ENGAGEMENT QUALITY CONSULTANT
[2019-04-03 16:00] VITALS: BP 156/65
[2019-04-03 20:00] VITALS: BP 151/78
[2019-04-04] VITALS: BP 136/63
[2019-04-04 08:00] VITALS: BP 137/58
[2019-04-04] MEDS ORDERED: MAGNESIUM OXID400 MG PO (08:07)
--- NOTE | 2019-04-04 10:28 | NUR ---
Discharge instructions reviewed with patient/family. Patient receptive and verbalizes understanding. Follow-up care arranged. Written instructions given to patient/family. KARTHIK BENJAMIN
--- NOTE | 2019-04-06 07:37 | NUR ---
PHYSICAL THERAPY CO-SIGN I approve of the Phyical Therapy notes written above. PRIYA CHAHAL PT
[2019-04-09] MEDS ORDERED: MAGNESIUM400 M1 PO (07:43)
[2019-04-09] MEDS ORDERED: CENTRUM SILVER1 EAC1 PO (09:40)
[2019-04-09] MEDS ORDERED: FIBER SELECT G1 EACH PO (09:41)
== END 2019-04-04 10:28 | disposition home health service (06) | DRG 557 ==
LOC: ED 17:09 → EDHOLD 19:43 → 5E 19:43
PROVIDERS: Internal Medicine Nephrology; Registered Nurse; ADMIT Internal Medicine
DX: M62.82 Rhabdomyolysis (principal); N17.0 Acute kidney failure with tubular necrosis; E87.1 Hypo-osmolality and hyponatremia; N39.0 Urinary tract infection, site not specified; E44.0 Moderate protein-calorie malnutrition; E87.3 Alkalosis; E11.22 Type 2 diabetes mellitus with diabetic chronic kidney disease; N18.3 Chronic kidney disease, stage 3 (moderate); H81.10 Benign paroxysmal vertigo, unspecified ear; E83.39 Other disorders of phosphorus metabolism; E87.6 Hypokalemia; E11.65 Type 2 diabetes mellitus with hyperglycemia; E83.52 Hypercalcemia; E87.8 Other disorders of electrolyte and fluid balance, not elsewhere classified; E80.6 Other disorders of bilirubin metabolism; E78.2 Mixed hyperlipidemia; T14.8XXA Other injury of unspecified body region, initial encounter; E83.42 Hypomagnesemia; E86.0 Dehydration; I12.9 Hypertensive chronic kidney disease with stage 1 through stage 4 chronic kidney disease, or unspecified chronic kidney disease; W18.39XA Other fall on same level, initial encounter; Z82.49 Family history of ischemic heart disease and other diseases of the circulatory system; Z82.3 Family history of stroke; Z80.9 Family history of malignant neoplasm, unspecified; Y93.89 Activity, other specified; Y92.89 Other specified places as the place of occurrence of the external cause; Y99.8 Other external cause status; Z79.84 Long term (current) use of oral hypoglycemic drugs; Z90.49 Acquired absence of other specified parts of digestive tract; Z90.710 Acquired absence of both cervix and uterus; Z68.27 Body mass index [BMI] 27.0-27.9, adult

== ENCOUNTER → 2019-04-23 | Outpatient (CLI) | payer OTHER, MEDICAID ==
[~2019-04-23] MED LIST changes: +CALCIUM + D3 E1 EACH PO; +CENTRUM SILVER1 EAC1 PO; +FIBER SELECT G1 EACH PO; +MAGNESIUM OXID400 MG PO; +MAGNESIUM400 M1 PO; +NEURONTIN100 MG PO; +OZEMPIC1 MG/0.75 SQ; +PROPRANOLOL HCL10 MG PO; +TOPROL XL25 MG PO; +TYLENOL EXTRA500 MG PO; +ZESTORETIC 20-1 EAC1 PO
[2019-04-23 10:25] LABS: ALBUMIN 3.5 gm/dl (3.1-4.5); CREATININE 1.28 mg/dL (0.55-1.02); POTASSIUM 3.9 mmol/L (3.5-5.1); TOTAL PROTEIN 7.7 gm/dL (6.4-8.2)
== END | disposition home or self-care (01) ==
LOC: LAB 00:41 → US 00:41
PROVIDERS: Internal Medicine
DX: K74.60 Unspecified cirrhosis of liver (principal); E11.9 Type 2 diabetes mellitus without complications

== ENCOUNTER → 2019-10-23 | Outpatient (CLI) | payer OTHER ==
[2019-10-23 09:41] LABS: CREATININE 1.39 mg/dL (0.55-1.02)
== END | disposition home or self-care (01) ==
LOC: LAB 09:01 → CT 10:00
PROVIDERS: Surgery
DX: E04.2 Nontoxic multinodular goiter (principal); M47.812 Spondylosis without myelopathy or radiculopathy, cervical region; E11.9 Type 2 diabetes mellitus without complications

== ENCOUNTER → 2020-01-08 | Outpatient (CLI) | payer OTHER ==
[2020-01-08 08:32] LABS: BASO # 0.1 10*3/uL (0.0-0.1); BASO % 1.2 % (0.0-1.0); EOS # 0.3 10*3/uL (0.0-0.4); EOS % 6.5 % (1.0-4.0); HEMATOCRIT 37.1 % (37.0-47.0); HEMOGLOBIN 11.9 g/dl (12.0-16.0); LYMPH # 1.1 10*3/uL (1.3-4.4); MEAN CELL VOLUME 96.6 fl (81.0-99.0); MEAN CORPUSCULAR HGB CONC 32.1 g/dl (33.0-37.0); MEAN PLATELET VOLUME 10.8 fl (9.6-12.3); MONO # 0.5 10*3/uL (0.1-1.0); MONO % 8.9 % (3.0-9.0); NEUT # 3.1 10*3/uL (2.3-7.9); NEUT % 61.2 % (47.0-73.0); PLATELET COUNT AUTOMATED 143 10*3/uL (130-400); RED BLOOD COUNT 3.84 10*6/uL (4.10-5.10); RED CELL DISTRI WIDTH 14.3 % (0-14.5)
[2020-01-08 09:15] LABS: POTASSIUM 3.8 mmol/L (3.5-5.1)
[2020-01-08 09:26] LABS: ALBUMIN 3.5 gm/dl (3.1-4.5); CREATININE 1.29 mg/dL (0.55-1.02); FREE T4 1.01 ng/dl (0.76-1.46); THYROID STIM HORMONE (HS) 2.22 uIU/ml (0.358-4.75); TOTAL PROTEIN 7.6 gm/dL (6.4-8.2)
== END | disposition home or self-care (01) ==
LOC: LAB 08:00
PROVIDERS: Internal Medicine
DX: I10 Essential (primary) hypertension (principal); E11.9 Type 2 diabetes mellitus without complications; E55.9 Vitamin D deficiency, unspecified; E78.2 Mixed hyperlipidemia

== ENCOUNTER 2020-05-28 09:37 | Emergency (ER) | payer OTHER ==
[~2020-05-28] VITALS: Ht 162.5 cm; Wt 78.0 kg
[2020-05-28 09:46] VITALS: BP 181/71
[2020-05-28 10:21] LABS: BASO % 0.5 % (0.0-1.0); EOS # 0.3 10*3/uL (0.0-0.4); EOS % 4.2 % (1.0-4.0); HEMATOCRIT 40.3 % (37.0-47.0); LYMPH # 1.1 10*3/uL (1.3-4.4); LYMPH % 14.4 % (27.0-41.0); MEAN CELL VOLUME 92.9 fl (81.0-99.0); MEAN CORPUSCULAR HGB 30.6 pg (27.0-31.0); MONO # 0.5 10*3/uL (0.1-1.0); MONO % 6.2 % (3.0-9.0); NEUT # 5.6 10*3/uL (2.3-7.9); PLATELET COUNT AUTOMATED 148 10*3/uL (130-400); RED BLOOD COUNT 4.34 10*6/uL (4.10-5.10); RED CELL DISTRI WIDTH 14.3 % (0-14.5); WHITE BLOOD COUNT 7.6 10*3/uL (4.8-10.8)
[2020-05-28 10:28] LABS: BILIRUBIN NEGATIVE (NEGATIVE); BLOOD TRACE-LYSED (NEGATIVE); CLARITY CLEAR (CLEAR); COLOR STRAW (YELLOW); GLUCOSE TRACE (NEGATIVE); KETONE NEGATIVE (NEGATIVE)
[2020-05-28 10:29] LABS: LEUKO ESTERASE TRACE (NEGATIVE); NITRITE NEGATIVE (NEGATIVE); PH 8.5 (5.0-9.0); UROBILINOGEN 0.2 E.U./dl (0.2-1.0)
[2020-05-28 10:30] LABS: BACTERIA 1+
[2020-05-28 10:36] LABS: ACT PARTIAL THROMBO TIME 27.6 SECONDS (20.0-32.1); INTERNATIONAL NORM RATIO 1.1 (2.0-3.5)
[2020-05-28 10:42] LABS: BUN 11 mg/dl (7-24); CHLORIDE 99 mmol/L (98-107); CREATININE 1.24 mg/dL (0.55-1.02); POTASSIUM 3.8 mmol/L (3.5-5.1); SODIUM 135 mmol/L (136-145)
[2020-05-28 10:47] LABS: TROPONIN I < 0.015 ng/ml (<0.045)
== END 2020-05-28 11:05 | disposition home or self-care (01) ==
LOC: ED 09:37
PROVIDERS: Emergency Medicine
DX: R42 Dizziness and giddiness (principal); E11.9 Type 2 diabetes mellitus without complications; I10 Essential (primary) hypertension; K21.9 Gastro-esophageal reflux disease without esophagitis; Z79.4 Long term (current) use of insulin; Z79.899 Other long term (current) drug therapy

== ENCOUNTER → 2020-06-15 | Outpatient (CLI) | payer OTHER ==
[2020-06-15 09:53] LABS: ALBUMIN 3.4 gm/dl (3.1-4.5); BILIRUBIN, DIRECT 0.3 mg/dL (0.0-0.2); TOTAL PROTEIN 7.7 gm/dL (6.4-8.2)
== END | disposition home or self-care (01) ==
LOC: LAB 08:51 → CARD 09:30
PROVIDERS: Internal Medicine
DX: I08.0 Rheumatic disorders of both mitral and aortic valves (principal); K74.60 Unspecified cirrhosis of liver; R42 Dizziness and giddiness; R06.02 Shortness of breath; Z79.899 Other long term (current) drug therapy

== ENCOUNTER → 2020-06-17 | Outpatient (CLI) | payer OTHER | END | disposition home or self-care (01) | LOC: US 01:58 | DX: K74.60 Unspecified cirrhosis of liver (principal) ==

== ENCOUNTER → 2020-10-22 | Outpatient (CLI) | payer OTHER ==
[2020-10-22 09:36] LABS: BASO % 0.7 % (0.0-1.0); EOS # 0.3 10*3/uL (0.0-0.4); EOS % 6.3 % (1.0-4.0); HEMATOCRIT 37.6 % (37.0-47.0); LYMPH # 1.1 10*3/uL (1.3-4.4); LYMPH % 20.8 % (27.0-41.0); MEAN CELL VOLUME 94.9 fl (81.0-99.0); MEAN CORPUSCULAR HGB 30.8 pg (27.0-31.0); MEAN CORPUSCULAR HGB CONC 32.4 g/dl (33.0-37.0); MONO # 0.5 10*3/uL (0.1-1.0); MONO % 8.7 % (3.0-9.0); NEUT # 3.4 10*3/uL (2.3-7.9); NEUT % 63.1 % (47.0-73.0); PLATELET COUNT AUTOMATED 137 10*3/uL (130-400); RED BLOOD COUNT 3.96 10*6/uL (4.10-5.10); RED CELL DISTRI WIDTH 13.8 % (0-14.5); WHITE BLOOD COUNT 5.4 10*3/uL (4.8-10.8)
[2020-10-22 09:46] LABS: ALBUMIN 3.4 gm/dl (3.1-4.5); CREATININE 1.19 mg/dL (0.55-1.02); FREE T4 1.04 ng/dl (0.76-1.46); POTASSIUM 3.8 mmol/L (3.5-5.1); TOTAL PROTEIN 7.5 gm/dL (6.4-8.2)
[2020-10-22 09:51] LABS: THYROID STIM HORMONE (HS) 2.72 uIU/ml (0.358-4.75)
[2020-10-22 10:57] LABS: VITAMIN D, 25-HYDROXY 40.7 ng/mL (30-100)
== END | disposition home or self-care (01) ==
LOC: LAB 09:02
PROVIDERS: ATTEND Internal Medicine
DX: Z00.00 Encounter for general adult medical examination without abnormal findings (principal); I12.9 Hypertensive chronic kidney disease with stage 1 through stage 4 chronic kidney disease, or unspecified chronic kidney disease; E11.22 Type 2 diabetes mellitus with diabetic chronic kidney disease; N18.30 Chronic kidney disease, stage 3 unspecified; E55.9 Vitamin D deficiency, unspecified

== ENCOUNTER 2020-11-08 10:55 | Emergency (ER) | payer OTHER ==
[~2020-11-08] VITALS: Wt 72.6 kg
[2020-11-08 11:06] VITALS: BP 173/82
[2020-11-08 14:59] LABS: BASO % 0.7 % (0.0-1.0); EOS # 0.3 10*3/uL (0.0-0.4); EOS % 5.1 % (1.0-4.0); LYMPH # 1.2 10*3/uL (1.3-4.4); LYMPH % 19.3 % (27.0-41.0); MEAN CORPUSCULAR HGB 30.3 pg (27.0-31.0); MEAN CORPUSCULAR HGB CONC 31.8 g/dl (33.0-37.0); MEAN PLATELET VOLUME 10.1 fl (9.6-12.3); MONO # 0.5 10*3/uL (0.1-1.0); MONO % 8.1 % (3.0-9.0); NEUT % 66.5 % (47.0-73.0); PLATELET COUNT AUTOMATED 155 10*3/uL (130-400); RED CELL DISTRI WIDTH 13.9 % (0-14.5); WHITE BLOOD COUNT 6.1 10*3/uL (4.8-10.8)
[2020-11-08 15:09] LABS: ACT PARTIAL THROMBO TIME 27.3 SECONDS (20.0-32.1); INTERNATIONAL NORM RATIO 1.1 (2.0-3.5)
[2020-11-08 15:16] LABS: ALBUMIN 3.4 gm/dl (3.1-4.5); ALKALINE PHOSPHATASE 87 U/L (45-117); BUN 12 mg/dl (7-24); CHLORIDE 106 mmol/L (98-107); CREATININE 1.19 mg/dL (0.55-1.02); LIPASE 173 U/L (73-393); POTASSIUM 3.7 mmol/L (3.5-5.1); SGOT/AST 30 IU/L (3-35); SGPT/ALT 28 U/L (12-78); SODIUM 139 mmol/L (136-145); TOTAL PROTEIN 7.7 gm/dL (6.4-8.2)
[2020-11-08 15:18] LABS: TROPONIN I < 0.015 ng/ml (<0.045)
== END 2020-11-08 15:51 | disposition home or self-care (01) ==
LOC: ED 10:55
PROVIDERS: Emergency Medicine
DX: R19.7 Diarrhea, unspecified (principal); R10.9 Unspecified abdominal pain; Z79.899 Other long term (current) drug therapy

== ENCOUNTER → 2021-03-13 | Outpatient (CLI) | payer OTHER | END | disposition home or self-care (01) | LOC: CARD 08:30 | PROVIDERS: ATTEND Internal Medicine | DX: I08.3 Combined rheumatic disorders of mitral, aortic and tricuspid valves (principal); I70.0 Atherosclerosis of aorta; I10 Essential (primary) hypertension ==

== ENCOUNTER 2021-04-16 14:28 | Emergency (ER) | payer OTHER ==
[2021-04-16 14:31] VITALS: BP 156/90
[2021-04-16 15:59] LABS: BASO % 0.3 % (0.0-1.0); EOS # 0.3 10*3/uL (0.0-0.4); EOS % 4.7 % (1.0-4.0); HEMATOCRIT 37.4 % (37.0-47.0); MEAN CELL VOLUME 96.9 fl (81.0-99.0); MEAN CORPUSCULAR HGB 31.6 pg (27.0-31.0); MEAN CORPUSCULAR HGB CONC 32.6 g/dl (33.0-37.0); MEAN PLATELET VOLUME 9.4 fl (9.6-12.3); MONO # 0.6 10*3/uL (0.1-1.0); MONO % 8.5 % (3.0-9.0); NEUT # 4.9 10*3/uL (2.3-7.9); NEUT % 71.1 % (47.0-73.0); PLATELET COUNT AUTOMATED 145 10*3/uL (130-400); RED BLOOD COUNT 3.86 10*6/uL (4.10-5.10); RED CELL DISTRI WIDTH 14.7 % (0-14.5); WHITE BLOOD COUNT 6.8 10*3/uL (4.8-10.8)
[2021-04-16 16:15] LABS: ALBUMIN 3.1 gm/dl (3.1-4.5); ALKALINE PHOSPHATASE 81 U/L (45-117); BUN 14 mg/dl (7-24); CHLORIDE 107 mmol/L (98-107); CREATININE 1.04 mg/dL (0.55-1.02); POTASSIUM 3.3 mmol/L (3.5-5.1); SGOT/AST 30 IU/L (3-35); SGPT/ALT 28 U/L (12-78); SODIUM 141 mmol/L (136-145); TOTAL PROTEIN 7.6 gm/dL (6.4-8.2)
[2021-04-16 16:21] LABS: BILIRUBIN Negative (Negative); BLOOD Negative (Negative); CLARITY Clear (Clear); COLOR Yellow (Yellow); GLUCOSE Trace (Negative); KETONE Negative (Negative); LEUKO ESTERASE Negative (Negative); NITRITE Negative (Negative); UROBILINOGEN 0.2 E.U./dl (0.0-1.0)
[2021-04-16 16:34] LABS: BACTERIA TRACE; EPITHELIAL CELLS 0-2; WBC 0-2 wbc/hpf (0-5)
== END 2021-04-16 19:23 | disposition home or self-care (01) ==
LOC: ED 14:28
PROVIDERS: Physician Assistant
DX: E11.649 Type 2 diabetes mellitus with hypoglycemia without coma (principal); Z79.4 Long term (current) use of insulin; Z79.899 Other long term (current) drug therapy; Z90.711 Acquired absence of uterus with remaining cervical stump; Z90.49 Acquired absence of other specified parts of digestive tract; Z87.891 Personal history of nicotine dependence

== ENCOUNTER → 2021-11-09 | Outpatient (CLI) | payer OTHER ==
[~2021-11-09] MED LIST changes: +ASPIRIN ADULT L81 M2 PO; +FUROSEMIDE40 MG PO; +Ipratropium Brom3 ML INH; +LASIX40 MG PO; -LEVEMIR10 ML SC; +LEVEMIR100 UNIT/1 SQ; +MACROBID100 M1 PO; +Metolazone5 MG PO; +OZEMPIC0.25 MG/01 SQ; +PIOGLITAZONE HC30 MG PO; +POTASSIUM CHLO10 MEQ PO; +PROAIR HFA8.5 GM INH; +PROPRANOLOL HCL40 MG PO; +TRADJENTA5 M1 PO
[2021-11-09 09:47] LABS: POTASSIUM 3.1 mmol/L (3.5-5.1)
[2021-11-09 09:53] LABS: ALBUMIN 2.5 gm/dl (3.1-4.5); CREATININE 1.26 mg/dL (0.55-1.02); TOTAL PROTEIN 6.6 gm/dL (6.4-8.2)
== END ==
LOC: LAB 09:03
PROVIDERS: Internal Medicine Nephrology; ATTEND Internal Medicine
DX: E11.9 Type 2 diabetes mellitus without complications (principal)

== ENCOUNTER 2021-11-19 11:36 | Emergency (ER) | payer OTHER ==
[2021-11-19 12:31] LABS: BASO % 0.4 % (0.0-1.0); EOS # 0.2 10*3/uL (0.0-0.4); EOS % 2.2 % (1.0-4.0); HEMATOCRIT 35.8 % (37.0-47.0); LYMPH # 0.9 10*3/uL (1.3-4.4); LYMPH % 9.6 % (27.0-41.0); MEAN CELL VOLUME 94.2 fl (81.0-99.0); MEAN CORPUSCULAR HGB 31.6 pg (27.0-31.0); MEAN CORPUSCULAR HGB CONC 33.5 g/dl (33.0-37.0); MEAN PLATELET VOLUME 9.9 fl (9.6-12.3); MONO # 0.7 10*3/uL (0.1-1.0); MONO % 7.1 % (3.0-9.0); NEUT # 7.5 10*3/uL (2.3-7.9); NEUT % 80.2 % (47.0-73.0); PLATELET COUNT AUTOMATED 273 10*3/uL (130-400); RED CELL DISTRI WIDTH 15.5 % (0-14.5); WHITE BLOOD COUNT 9.4 10*3/uL (4.8-10.8)
[2021-11-19 12:47] LABS: ALBUMIN 2.6 gm/dl (3.1-4.5); CREATININE 1.33 mg/dL (0.55-1.02); POTASSIUM 4.2 mmol/L (3.5-5.1); TOTAL PROTEIN 7.2 gm/dL (6.4-8.2)
[2021-11-19 15:12] LABS: BILIRUBIN Negative (Negative); BLOOD Negative (Negative); CLARITY Clear (Clear); COLOR Yellow (Yellow); GLUCOSE Negative (Negative); KETONE Negative (Negative); LEUKO ESTERASE Trace (Negative); NITRITE Negative (Negative); PH 7.5 (4.5-8.0); UROBILINOGEN 0.2 E.U./dl (0.0-1.0)
[2021-11-19 15:37] LABS: BACTERIA 1+
[2021-11-19 16:32] VITALS: BP 144/70
== END 2021-11-19 16:28 | disposition home or self-care (01) ==
LOC: ED 11:36
PROVIDERS: Student in an Organized Health Care Education/Training Program
DX: G31.84 Mild cognitive impairment of uncertain or unknown etiology (principal); Z79.899 Other long term (current) drug therapy; Z79.82 Long term (current) use of aspirin